=== PATIENT | female | born 1975 | race Caucasian/White ===

== ENCOUNTER → 2017-06-06 | Day surgery (SDC) | payer OTHER ==
--- NOTE | 2017-06-09 11:35 | OP ---
DATE OF OPERATION: 06/06/2017 PREOPERATIVE DIAGNOSIS: Right breast mass at 10 o'clock position 11 cm from the nipple. POSTOPERATIVE DIAGNOSIS: Right breast mass at 10 o'clock position 11 cm from the nipple. PROCEDURE: Right ultrasound-guided core biopsy and bowtie placement. ANESTHESIA: Local. ATTENDING SURGEON: Fifi Flynn MD ESTIMATED BLOOD LOSS: Minimal. COMPLICATIONS: None. DESCRIPTION OF PROCEDURE: The patient was made aware of the risks and benefits of the procedure and consented. She was placed in a supine position. Under sterile conditions with 1% lidocaine for local anesthesia, a small shirley was made in the skin. Using a 10-gauge suction biopsy device via lateral approach under ultrasound guidance, multiple cores were obtained and submitted to Pathology. Likewise, under ultrasound guidance, a bowtie clip was placed into the biopsy region well tolerated by patient. Steri-Strips and a sterile bandage was applied. Postprocedure mammography was performed. We will contact her with results. Woody [id number]
--- NOTE | 2017-06-09 15:57 | PATH ---
Surgical Pathology Report Patient Name: ARIEL HUGO [facility]. Rec. #: [id number] /Age/Gender: 1975 (Age: 41) / F Account: [id number] Location: [facility] RADIOLOGY U Taken: 06/06/2017 Received: 06/06/2017 Reported: 06/09/2017 Physicians: Fifi Tanner M.D. 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 Electronically Signed Viola Coles M.D. Gross Description Received in formalin, labeled "right breast 10N11" are multiple cores off light nicole and yellow-nicole soft tissue having an aggregate 2.2 x 1.5 x 0.2 cm. Entirely submitted in one cassette. Time to formalin fixation : < 1 minute Total formalin fixation time: Approximately 6 hours
== END | disposition home or self-care (01) ==
LOC: FRADUS-SUR 12:43
PROVIDERS: ATTEND Surgery
PROC: 0HBT3ZX Excision of Right Breast, Percutaneous Approach, Diagnostic (ICD-10-PCS; principal; 2017-06-06)
DX: N63.11 Unspecified lump in the right breast, upper outer quadrant (principal); N60.31 Fibrosclerosis of right breast; N60.81 Other benign mammary dysplasias of right breast
CPT/HCPCS: 19083; 87899; 88305-TC; A4648

== ENCOUNTER 2021-10-27 23:52 | Emergency (ER) | payer OTHER ==
[2021-10-28 00:05] VITALS: BP 124/72; PULSE 88; TEMP 98.6; BMI 31.3
[2021-10-28] MEDS ORDERED: ACETAMINOPHEN 325 MG TABLET (FP) PO ONE (00:46)
[2021-10-28] MEDS ORDERED: ACETAMINOPHEN 325 MG TABLET (FP) ONE (01:05)
== END 2021-10-28 01:56 | disposition home or self-care (01) ==
LOC: JER 23:52
DX: S50.11XA Contusion of right forearm, initial encounter (principal); S40.011A Contusion of right shoulder, initial encounter; S40.012A Contusion of left shoulder, initial encounter; Y04.8XXA Assault by other bodily force, initial encounter
CPT/HCPCS: 84703; 99281-25